=== PATIENT | female | born 1990 | race African-American/Black ===

== ENCOUNTER 2024-04-06 23:46 | Emergency (ER) | payer BC, MEDICAID ==
[~2024-04-06] VITALS: Ht 167.6 cm; Wt 66.5 kg
[2024-04-06 23:49] VITALS: O2SAT 100
[2024-04-07 00:09] VITALS: BP 125/81; PULSE 78; RESP 18; TEMP 98.2; O2SAT 98
== END 2024-04-07 04:35 | disposition left against medical advice (07) ==
LOC: ER 23:46
DX: M25.551 Pain in right hip (principal); Z53.21 Procedure and treatment not carried out due to patient leaving prior to being seen by health care provider
CPT/HCPCS: 73502; 73610; 73630